=== PATIENT | female | born 1960 | race Caucasian/White ===

== ENCOUNTER → 2016-05-28 | Outpatient (CLI) | payer BC ==
[~2016-05-28] MED LIST: CEPH500C PO; OXYC7.5T65 PO; PHEN-775 PO
--- NOTE | 2016-05-29 13:47 | MAMMOGRAPHY REPORT ---
BILATERAL DIGITAL SCREENING MAMMOGRAM TOMOSYNTHESIS WITH CAD: 05/28/2016 CLINICAL HISTORY: Routine screening. Patient has no complaints. TECHNIQUE: Breast tomosynthesis in addition to standard 2D mammography was performed. Current study was also evaluated with a Computer Aided Detection (CAD) system. COMPARISON: Comparison is made to exams dated: 05/22/2015 mammogram, 07/14/2012 mammogram, 09/23/2013 mammogram, and 05/28/2010 mammogram - [facility]. BREAST COMPOSITION: The tissue of both breasts is extremely dense, which lowers the sensitivity of mammography. FINDINGS: No suspicious masses, calcifications, or areas of architectural distortion are noted in e ither breast. There has been no significant interval change compared to prior exams. Bilateral chivo gn-appearing calcifications are not significantly changed. A biopsy marker clip is again noted in t he right medial breast. A benign 6 mm intramammary lymph node is again seen within the left upper i nner quadrant posteriorly. IMPRESSION: ACR BI-RADS CATEGORY 2: BENIGN There is no mammographic evidence of malignancy. A 1 year screening mammogram is recommended. The p atient will receive written notification of the results. Approximately 10% of breast cancers are not detected with mammography. A negative mammographic repor t should not delay biopsy if a clinically suggestive mass is present. Miladys Hyatt M.D. ah/:05/28/2016 16:05:01 Creative Services Intern: Li MURRAY(Eliseo)(Jonathan), [facility] letter sent: Normal 1/2 BI-RADS Code: ACR BI-RADS Category 2: Benign
== END | disposition home or self-care (01) ==
LOC: C.MAMM 15:43
PROVIDERS: ATTEND Nurse Practitioner
DX: Z12.31 Encounter for screening mammogram for malignant neoplasm of breast (principal)

== ENCOUNTER → 2016-09-18 | Outpatient (CLI) | payer BC ==
--- NOTE | 2016-09-18 14:14 | DIAGNOSTIC IMAGING REPORT ---
CHEST 2 VIEWS ROUTINE CLINICAL HISTORY: Persistent cough. COMPARISON STUDY: No previous studies for comparison. FINDINGS: Lung volumes are normal. Lungs are clear. There is no pneumothorax or pleural effusion. Cardiac size is normal. Mediastinal contours are normal. There is no evidence of pulmonary edema. IMPRESSION: No acute cardiopulmonary findings. Electronically signed by: Rajesh Beltre M.D. 09/18/2016 2:12 PM Dictated Date/Time: 09/18/2016 2:12 PM
== END | disposition home or self-care (01) ==
LOC: C.RADPV 13:47
PROVIDERS: ATTEND Nurse Practitioner
DX: R05 Cough (principal)

== ENCOUNTER → 2017-05-07 | Day surgery (SDC) | payer BC ==
[2017-04-23 14:51] VITALS: BMI 27.0
[2017-04-23 15:55] LABS: BASO % 0.5 %; BASO ABS # 0.03 K/uL (0-0.2); COMPLETE YES; EOS % 2.6 %; HEMATOCRIT 39.6 % (37-47); IG% 0.2 %; LYMPH % 35.2 %; LYMPH ABS # 2.06 K/uL (1.2-3.4); MEAN CELL VOLUME 89.8 fL (80-100); MEAN CORPUSCULAR HEMOGLOBIN 30.8 pg (25-34); MEAN CORPUSCULAR HGB CONC 34.3 g/dl (32-36); MEAN PLATELET VOLUME 10.1 fL (7.4-10.4); MONO % 7.4 %; NEUT % 54.1 %; PLATELET COUNT 184 K/uL (130-400); RED BLOOD COUNT 4.41 M/uL (4.2-5.4); WHITE BLOOD COUNT 5.85 K/uL (4.8-10.8)
[2017-04-23 16:09] LABS: URINE APPEARANCE CLEAR (CLEAR); URINE BILIRUBIN NEG (NEG); URINE COLOR YELLOW; URINE NITRITE NEG (NEG); URINE SPECIFIC GRAVITY 1.013 (1.000-1.030); UROBILINOGEN NEG (NEG)
[2017-04-23 16:14] LABS: MANUAL MICROSCOPIC REQUIRED? NO; REVIEW REQ? NO
[2017-04-23 16:37] LABS: BUN/CREATININE RATIO 12.5 (10-20); CALCIUM 9.6 mg/dl (8.5-10.1); CREATININE 0.7 mg/dl (0.60-1.20); POTASSIUM 4.7 mmol/L (3.5-5.1)
[~2017-05-07] VITALS: Ht 162.6 cm; Wt 72.8 kg
[~2017-05-07] MED LIST changes: +ATROPINE SULFATE 0.1 MG/ML 5ML SYR IV PRN; +BACITRACIN 50000 UNIT VIAL ONE; +BELLADONNA/OPIUM SUPP 60 MG SUPP PR ONE; +CEFAZOLIN 2000MG IV PUSH 10 ML IV SCH; +CEFAZOLIN SOD 1 GM VIAL ONE; +DEXAMETHASONE SOD INJ 4 MG/ML VIAL ONE; +EpHEDrine SULFATE INJ 50 MG/ML AMP IV PRN; +FENTANYL CITRATE INJ 50 MCG/1 ML 2 ML VIAL IV PRN; +FENTANYL CITRATE INJ 50 MCG/1 ML 2 ML VIAL ONE; +HYDROmorphone INJ 1 MG/ML SYR IV PRN; +LIDOCAINE HCL 2% 2 ML VIAL (20MG/ML) ONE; +LIDOCAINE/EPINEPHRINE 1% 20 ML VIAL ONE; +METOCLOPRAMIDE HCL INJ 5 MG/ML 2 ML VIAL ONE; +MIDAZOLAM HCL 1 MG/ML 2ML VIAL ONE; +NSS 1000ML IV SCH; +ONDANSETRON INJ 2 MG/ML 2 ML VIAL IV PRN; +ONDANSETRON INJ 2 MG/ML 2 ML VIAL ONE; +OXYCODONE/ACETAMINOPHEN 5-325 TAB PO PRN; +OXYCODONE/ACETAMINOPHEN 7.5-325 TAB PO PRN; +PHENAZOPYRIDINE HCL 200 MG TAB PO PRN; +PREMARIN VAG CRM 14 APPLN/30 GM TUBE ONE; +PROMETHAZINE HCL INJ 12.5 MG in SODIUM CHLORIDE 0.9% 50ML 50 ML IV PRN; +PROPOFOL IV EMULSION 10 MG/ML 20 ML VIAL IV ONE
[2017-05-07 09:28] VITALS: Ht 162.6 cm; Wt 72.8 kg
--- NOTE | 2017-05-07 12:29 | History & Physical Bridge Note ---
H&P Re-Evaluation Bridge Note: I have examined the patient, reviewed the History & Physical and in the interval since the performance of the History & Physical I have noted the following changes of clinical significance: No changes noted
--- NOTE | 2017-05-07 12:40 | Discharge Instructions ---
Discharge Instructions Date of Service May 07, 2017. Admission Reason for Admission: Urinary Stress Incontinence Discharge Discharge Diagnosis / Problem: Stress incontinence Discharge Goals Goal(s): Decrease discomfort, Improve function Activity Recommendations Activity Limitations: resume your previous activity Lifting Limitations: no more than 10 pounds, gradually increase as tolerated, until after follow-up appointment Exercise/Sports Limitations: rest today, gradually increase as tolerated May Resume Sexual Activity: after follow-up appointment Shower/Bathe: no limitations . Instructions / Follow-Up Instructions / Follow-Up Okay to remove vaginal packing tomorrow morning. Okay to shower. May have pelvic discomfort. Call if any fevers. Call if unable to void. Current Hospital Diet Patient's current hospital diet: Reg Discharge Diet Recommended Diet: Regular Diet Procedures Procedures Performed: Sling Pending Studies Studies pending at discharge: no Medical Emergencies . Who to Call and When: Medical Emergencies: If at any time you feel your situation is an emergency, please call 911 immediately. . Non-Emergent Contact Non-Emergency issues call your: Primary Care Provider, Urologist . . "Provider Documentation" section prepared by Nba Kilgore,. . VTE Core Measure Inpt VTE Proph given/why not?: SCD's
--- NOTE | 2017-05-07 14:51 | [facility] Operative Report ---
Operative Report Operative Date May 07, 2017. Pre-Operative Diagnosis Stress Incontinence Post-Operative Diagnosis Same Procedure(s) Performed Cystoscopy and Midurethral sling Surgeon Jame Etcher Hand Surgeon(s) Mino Estimated Blood Loss Minimal Findings Significant stress incontinence. No injury or other area of concern. Specimens None Drains None Anesthesia General/MAC Complication(s) None Disposition Recovery Room / PACU Indications Risks and benefits discussed at length. Patient agreeable and consented. Description of Procedure Patient was consented and brought back to the operating room. Patient was placed under anesthesia in the supine position. Patient was prepped and draped in the regular sterile fashion. A time out was completed. Patient was moved into the dorsal lithotomy position. The patient was assessed and a marking made at the midurethra . local anesthetic was placed under the tissues and an incision was mad with a scalpel. Tissue was dissected around the urethra with great care to identify landmarks. A raygoza had been placed to drain the bladder prior. Metzenbaum scissor were utilized to dissect the tissue. At the suprapubic region, two skin incisions were made after anesthetizing the skin and deep tissues. The sling trocars were then manipulated into the incisions and down posterior to the pubic bone to the vaginal incision. The raygoza was removed and 30degree Cystoscope was placed into the bladder and the entire bladder was examined. The UO's were identified. A 70 degree lense was selected. No injury or other areas of concern. The urethra was examined and no area of injury or concern. The bladder was emptied. The scope was removed. The sling was attached to the trocars and the trocars taken back through the retropubic space. The shealth were removed when the sling was seated under the urethra without tension. With the sling in good position, the sling ends were trimmed and the skin edges closed and glued. The vaginal region was irrigated. The vaginal tissues were closed with a vicryl suture. Vaginal packing was placed and the raygoza replaced. The patient was cleaned, aroused from anesthesia, and transferred to the pacu in stable condition having tolerated the procedure well with no complications. I was present and participated in all aspects of the procedure. Patient will be monitored in PACU in stable condition. I attest to the content of the Intraoperative Record and any orders documented therein. Any exceptions are noted below.
--- NOTE | 2017-05-07 15:04 | Anesthesiology Progress Note ---
Anesthesia Post Op Note Date & Time May 07, 2017 at 15:04 Vital Signs Pain Intensity: 0 Vital Signs Past 12 Hours Date Time Temp Pulse Resp B/P (MAP) Pulse Ox O2 Delivery O2 Flow Rate FiO2 05/07/17 14:56 85 19 147/83 100 05/07/17 14:56 85 19 05/07/17 14:51 87 15 05/07/17 14:51 89 15 125/69 100 05/07/17 14:46 85 17 130/63 100 05/07/17 14:46 86 17 05/07/17 14:41 92 19 05/07/17 14:41 91 19 130/68 100 05/07/17 14:36 86 17 140/71 100 05/07/17 14:36 87 17 05/07/17 14:31 36.8 96 12 136/70 98 Oxymask 10 05/07/17 14:31 98 17 05/07/17 14:31 98 17 136/70 100 Notes Mental Status: alert / awake / arousable, participated in evaluation Pt Amnestic to Procedure: Yes Nausea / Vomiting: adequately controlled Pain: adequately controlled Airway Patency, RR, SpO2: stable & adequate BP & HR: stable & adequate Hydration State: stable & adequate Anesthetic Complications: no major complications apparent
[2017-05-07 15:20] VITALS: BP 139/70; PULSE 77; TEMP 36.2; O2SAT 18
[2017-05-07 15:50] VITALS: BP 145/75; PULSE 69; TEMP 36.4; O2SAT 18
[2017-05-07 16:30] VITALS: BP 141/70; PULSE 69; TEMP 36.4; O2SAT 18
== END | disposition home or self-care (01) ==
LOC: C.ACU 09:00
PROVIDERS: ATTEND Urology
DX: N39.3 Stress incontinence (female) (male) (principal); N92.4 Excessive bleeding in the premenopausal period; Z82.49 Family history of ischemic heart disease and other diseases of the circulatory system; Z80.51 Family history of malignant neoplasm of kidney

== ENCOUNTER → 2017-06-03 | Outpatient (CLI) | payer OTHER ==
[~2017-06-03] MED LIST changes: -ATROPINE SULFATE 0.1 MG/ML 5ML SYR IV PRN; -BACITRACIN 50000 UNIT VIAL ONE; -BELLADONNA/OPIUM SUPP 60 MG SUPP PR ONE; -CEFAZOLIN 2000MG IV PUSH 10 ML IV SCH; -CEFAZOLIN SOD 1 GM VIAL ONE; -DEXAMETHASONE SOD INJ 4 MG/ML VIAL ONE; -EpHEDrine SULFATE INJ 50 MG/ML AMP IV PRN; -FENTANYL CITRATE INJ 50 MCG/1 ML 2 ML VIAL IV PRN; -FENTANYL CITRATE INJ 50 MCG/1 ML 2 ML VIAL ONE; -HYDROmorphone INJ 1 MG/ML SYR IV PRN; -LIDOCAINE HCL 2% 2 ML VIAL (20MG/ML) ONE; -LIDOCAINE/EPINEPHRINE 1% 20 ML VIAL ONE; -METOCLOPRAMIDE HCL INJ 5 MG/ML 2 ML VIAL ONE; -MIDAZOLAM HCL 1 MG/ML 2ML VIAL ONE; -NSS 1000ML IV SCH; -ONDANSETRON INJ 2 MG/ML 2 ML VIAL IV PRN; -ONDANSETRON INJ 2 MG/ML 2 ML VIAL ONE; -OXYCODONE/ACETAMINOPHEN 5-325 TAB PO PRN; -OXYCODONE/ACETAMINOPHEN 7.5-325 TAB PO PRN; -PHEN-775 PO; -PHENAZOPYRIDINE HCL 200 MG TAB PO PRN; -PREMARIN VAG CRM 14 APPLN/30 GM TUBE ONE; -PROMETHAZINE HCL INJ 12.5 MG in SODIUM CHLORIDE 0.9% 50ML 50 ML IV PRN; -PROPOFOL IV EMULSION 10 MG/ML 20 ML VIAL IV ONE
--- NOTE | 2017-06-04 14:40 | MAMMOGRAPHY REPORT ---
BILATERAL DIGITAL SCREENING MAMMOGRAM TOMOSYNTHESIS WITH CAD: 06/03/2017 CLINICAL HISTORY: Routine screening. Patient has no complaints. TECHNIQUE: Breast tomosynthesis in addition to standard 2D mammography was performed. Current study was also evaluated with a Computer Aided Detection (CAD) system. COMPARISON: Comparison is made to exams dated: 05/28/2016 mammogram, 05/22/2015 mammogram, 09/23/2013 ma mmogram, 07/14/2012 ultrasound, 07/14/2012 mammogram, and 05/28/2010 ultrasound - [facility] enter. BREAST COMPOSITION: The tissue of both breasts is heterogeneously dense, which may obscure small mas ses. FINDINGS: No suspicious masses, calcifications, or areas of architectural distortion are noted in ei ther breast. There has been no significant interval change compared to prior exams. A biopsy marker clip is again noted within the right medial breast. Benign-appearing left breast calcifications are not significantly changed. A few small circumscribed benign-appearing left breast masses are also st able. IMPRESSION: ACR BI-RADS CATEGORY 2: BENIGN There is no mammographic evidence of malignancy. A 1 year screening mammogram is recommended. The pa tient will receive written notification of the results. Approximately 10% of breast cancers are not detected with mammography. A negative mammographic report should not delay biopsy if a clinically suggestive mass is present. Miladys Hyatt M.D. /:06/03/2017 16:05:31 Tire Assembler: Eden LAUREN)(Jonathan), [facility] letter sent: Normal 1/2 BI-RADS Code: ACR BI-RADS Category 2: Benign
== END | disposition home or self-care (01) ==
LOC: C.MAMM 15:19
PROVIDERS: ATTEND Nurse Practitioner
DX: Z12.31 Encounter for screening mammogram for malignant neoplasm of breast (principal)

== ENCOUNTER → 2017-07-21 | Outpatient (CLI) | payer OTHER ==
--- NOTE | 2017-07-21 14:51 | DIAGNOSTIC IMAGING REPORT ---
CHEST 2 VIEWS ROUTINE HISTORY: 56 years-old Female A TYPICAL CHEST PAIN COUGH acute atypical chest pain with cough COMPARISON: Chest radiographs 09/18/2016 TECHNIQUE: PA and lateral views of the chest FINDINGS: Cardiomediastinal and hilar silhouettes are within normal limits. There is no pneumothorax, pleural effusion, focal airspace consolidation or overt pulmonary edema. The bones of the chest appear grossly intact. Postoperative changes of the left humeral head suggests prior rotator cuff repair. IMPRESSION: No acute process. The above report was generated using voice recognition software. It may contain grammatical, syntax or spelling errors. Electronically signed by: Gautam Robles M.D. 07/21/2017 2:50 PM Dictated Date/Time: 07/21/2017 2:49 PM
== END | disposition home or self-care (01) ==
LOC: C.RADPV 14:36
PROVIDERS: ATTEND Nurse Practitioner
DX: R07.89 Other chest pain (principal); R05 Cough

== ENCOUNTER → 2017-07-21 | Outpatient (CLI) | payer OTHER ==
[~2017-07-21] MED LIST changes: +OPTIRAY 320 IV PRN
--- NOTE | 2017-07-21 17:33 | DIAGNOSTIC IMAGING REPORT ---
CT ANGIOGRAPHY OF THE CHEST, PULMONARY EMBOLUS PROTOCOL CLINICAL HISTORY: Atypical chest pain. Persistent cough. COMPARISON STUDY: Chest radiograph September 18, 2016 and July 21, 2017. TECHNIQUE: Following IV administration of 89 mL of Optiray-320, helical axial images of the chest were obtained utilizing the pulmonary embolus protocol. Maximal intensity projections and sagittal and coronal reformats were viewed on an independent 3D workstation. IV contrast was administered without complication. A dose lowering technique was utilized adhering to the principles of ALARA. CT DOSE: 211.86 mGy.cm FINDINGS: No pulmonary emboli are identified. There is no evidence of thoracic aortic dissection. The size of the heart is normal. There is no pericardial effusion. There are no enlarged thoracic lymph nodes. A small hiatal hernia is noted. There is no consolidation to suggest pneumonia. Lingular groundglass opacity reflects atelectasis. Central airways are patent. There is no pneumothorax or pleural effusion. Bony thorax and upper abdomen are unremarkable. Aberrant bronchial anatomy of the right upper lobe is incidentally noted. IMPRESSION: 1. No pulmonary emboli identified. 2. No acute intrathoracic findings. 3. Small hiatal hernia. Electronically signed by: Rajesh Beltre M.D. 07/21/2017 5:31 PM Dictated Date/Time: 07/21/2017 5:09 PM
== END | disposition home or self-care (01) ==
LOC: C.CTS 16:40
PROVIDERS: ATTEND Nurse Practitioner
DX: R05 Cough (principal); R07.89 Other chest pain